=== PATIENT | male | born 1990 | race African-American/Black ===

== ENCOUNTER 2017-06-15 22:52 | Emergency (ER) | payer SELFPAY ==
[~2017-06-15] VITALS: Ht 172.7 cm; Wt 61.5 kg
[2017-06-15 23:15] VITALS: BP 125/75
[2017-06-15] MEDS ORDERED: HYDR15SO4 PO (23:58)
--- NOTE | 2017-06-15 23:58 | PHYS DOC ---
Past Medical History Past Medical History: Other Additional Past Medical Histor: [employer]ING [employer] Past Surgical History: Other Additional Past Surgical Histo: [employer]UFA[employer]ING [employer]ER DRAINED Alcohol Use: Occasionally Drug Use: Marijuana Adult General Chief Complaint Chief Complaint: SORE THROAT HPI HPI Patient is a 27 year old male complaining of a sore throat for 4 days. It's only sore on the right. Earlier today he was drinking Gatorade but now his throat is too sore and he feels like he can't swallow. He states the last time his throat felt like this he had an abscess and they stuck a needle in there and got out pus. That was at an ENT doctor at [facility]. He has felt feverish and had chills. Patient is chronically healthy. Review of Systems Review of Systems Constitutional: He has felt feverish and has had chills. Eyes: Denies change in visual acuity, redness, or eye pain [] HENT: As in history of present illness Current Medications Current Medications Current Medications Medications (Trade) Dose Ordered Sig/Janie Start Time Stop Time Status Last Admin Dose Admin Acetaminophen/ Hydrocodone Bitart (Lortab 7.5-325/ 15ml Oral Solution) 15 ml 1X ONCE 06/16/17 00:15 06/16/17 00:16 DC 06/16/17 00:06 15 ML Penicillin G Benzathine (Bicillin L-A) 1,200,000 unit 1X ONCE 06/16/17 00:15 06/16/17 00:16 DC 06/16/17 00:06 1,200,000 UNIT Allergies Allergies Allergies Coded Allergies Type Severity Reaction Last Updated Verified No Known Drug Allergies 06/15/17 No Physical Exam Physical Exam Constitutional: Well developed, well nourished, alert, mentating normally, he is spitting his saliva into a cup at times but is also swallowing at times. HENT: Normocephalic, atraumatic, bilateral external ears normal, oropharynx moist, nose normal. Tongue normal. Oropharynx is beefy red. Both tonsils are enlarged. The right may be slightly larger than the left. The uvula is not swollen. The uvula is midline. Eyes: PERRLA, EOMI, conjunctiva normal, no discharge. [] Neck: Normal range of motion, supple, no stridor. No significant lymphadenopathy although palpation of the anterior cervical area is tender mostly on the right. Skin: Warm, dry, no erythema, no rash. [] Extremities: No tenderness, no cyanosis, no clubbing, ROM intact, no edema. [] Neurologic: Alert and oriented X 3, normal motor function, normal sensory function, no focal deficits noted. [] Current Patient Data Vital Signs Vital Signs Date Time Temp Pulse Resp B/P (MAP) Pulse Ox O2 Delivery O2 Flow Rate FiO2 06/16/17 00:06 18 Room Air 06/15/17 23:15 100.2 76 125/75 (92) 99 100.2 EKG EKG [] Radiology/Procedures Radiology/Procedures [] Course & Med Decision Making Course & Med Decision Making Pertinent Labs and Imaging studies reviewed. (See chart for details) Rapid strep positive. 27-year-old male presents with increasingly severe sore throat, only on the right. He was drinking Gatorade today but states that his throat hurts too bad to drink this evening. On exam his right tonsil may be slightly more swollen with some asymmetry, but I do not see any evidence on exam of a pointing abscess at this time. I advised the patient I recommend trying an injection of penicillin and some hydrocodone liquid for pain and if he still feeling unable to swallow or if he is not rapidly improving, ENT follow-up. He can follow up with the ENT doctor he saw in the past at [facility] or at ENT. At this time, I don't see any evidence that he has an abscess that could be definitively drained, although this might declare itself over the next day or so. Patient understands and agrees with the plan, as does his mother who is here with him. [] Dragon Disclaimer Dragon Disclaimer This electronic medical record was generated, in whole or in part, using a voice recognition dictation system. Departure Departure Impression: Primary Impression: Pharyngitis Disposition: 01 HOME, SELF-CARE Condition: STABLE Patient Instructions: Peritonsillar Abscess, [id number], Strep Throat, Easy- to-Read Additional Instructions: As we discussed, right now, I do not see any place where we could easily drained pus with a needle. We will treat you with antibiotics and pain medicine , and it might get better, or within 1-2 days there might be an area that can be drained. Call ENT specialist tomorrow morning to see if you can get in for recheck. You might be able to be seen at [facility] ENT clinic or at the ENT doctor you saw 2 years ago. Hydrocodone liquid for pain, no driving while you are taking this, this may allow you to be able to drink fluids. Scripts Hydrocodone Bit/Acetaminophen (HYDROCODONE-APAP 7.5-325/15 SOLN ) 15 Ml Solution 15 ML PO PRN Q6HRS Y for sore throat pain, #120 ML 0 Refills Prov: DELPHINE PACHECO MD 06/15/17 DELPHINE PACHECO MD Jun 15, 2017 23:58
[2017-06-16] MEDS ORDERED: PENICILLIN G BENZATHINE LA 1,200,000 UNIT/2 ML DISP.SYRIN. IM ONE (00:15)
[2017-06-16] MEDS ORDERED: HYDROcodon/APAP 7.5/325MG ORAL 15 ML SOLUTION PO ONE (00:15)
[2017-06-16 10:04] LABS: NEGATIVE OBC STREP NEG; POSITIVE OBC STREP POS
== END 2017-06-16 00:22 | disposition home or self-care (01) ==
LOC: ER 22:52
DX: J02.0 Streptococcal pharyngitis (principal); F12.10 Cannabis abuse, uncomplicated
CPT/HCPCS: 87880; 96372; 99283; J0561